=== PATIENT | male | born 1950 | race Two or more races ===

== ENCOUNTER 2024-02-13 12:34 | Emergency (ER) | payer OTHER ==
[~2024-02-13] VITALS: Ht 165.1 cm; Wt 65.9 kg
[~2024-02-13 12:34] MED LIST: TAMS0.4C94 PO
[2024-02-13] MEDS ORDERED: METF-444 PO (12:40)
[2024-02-13 12:41] VITALS: BP 138/52; PULSE 68; RESP 18; TEMP 99.3; O2SAT 98
[2024-02-13 12:56] LABS: GLUCOMETER DEV NAME(LOC) ER.7; GLUCOSE,POINT OF CARE 135 MG/DL (70-110)
== END 2024-02-13 17:35 | disposition home or self-care (01) ==
LOC: EMS 12:34
DX: T83.011A Breakdown (mechanical) of indwelling urethral catheter, initial encounter (principal); E11.9 Type 2 diabetes mellitus without complications
CPT/HCPCS: 51702; 82962; 99284